=== PATIENT | female | born 1970 | race Caucasian/White ===

== ENCOUNTER 2017-10-09 08:32 | Day surgery (SDC) | payer OTHER ==
[2017-10-09] MEDS ORDERED: SCOPOLAMINE HYDROBROMIDE PATCH TD ONE (08:41)
[2017-10-09] MEDS ORDERED: Ringers Lactate 1,000 ML IV ONE ×5 (08:46→14:55)
[2017-10-09] MEDS ORDERED: CEFAZOLIN/SWI 1gm 1 GM/10 ML SYR ONE ×2 (08:46→09:07)
[2017-10-09 08:49] LABS: Specific Gravity 1.025 (1.005-1.030)
[2017-10-09 08:50] LABS: Absolute Monocytes 0.3 K/uL (0.1-1.3); Absolute Neutrophil 4.7 K/uL (1.8-8.0); Basophils % 0.6 % (0-1.3); Eosinophils % 8.1 % (0-4.4); Hematocrit 41.6 % (36.0-45.0); Lymphocytes % 26.3 % (15.3-44.8); MCH 28.8 pg (27.0-35.0); MCV 86.3 fL (80-100); MPV 8.2 fL (7.6-11.3); Monocytes % 4.2 % (3.3-12.3); RBC Red Blood Cell Count 4.82 M/uL (3.86-4.86)
[2017-10-09] MEDS ORDERED: PROPOFOL 200 MG/20 ML VIAL IV ONE (08:55)
[2017-10-09] MEDS ORDERED: MIDAZOLAM HCL 2 MG/2 ML INJ ONE (08:56)
[2017-10-09] MEDS ORDERED: LIDOCAINE 2% MPF 5 ML VIAL ONE (08:56)
[2017-10-09] MEDS ORDERED: FENTANYL CITR 100 MCG/2 ML ONE ×2 (08:57→11:47)
[2017-10-09] MEDS ORDERED: ROCURONIUM 50 MG/5 ML VIAL IV ONE (08:58)
[2017-10-09] MEDS ORDERED: ONDANSETRON 4 MG/2 ML VIAL ONE ×2 (08:58→16:17)
[2017-10-09] MEDS ORDERED: NS 0.9% VIAL 10 ML ONE ×3 (09:06→13:36)
[2017-10-09] MEDS ORDERED: GENTAMICIN 80 MG/100 ML BAG 80 MG/100 ML BAG IV ONE (09:07)
[2017-10-09] MEDS ORDERED: BACITRACIN 50000 UNIT VIAL ONE (09:07)
--- NOTE | 2017-10-09 09:14 | RAD REPORT ---
EXAM DESCRIPTION: Yeny Sher (2 Views)10/09/2017 8:29 am CLINICAL HISTORY: Preop for breast surgery COMPARISON: None FINDINGS: The lungs appear clear of acute infiltrate. The heart is normal size IMPRESSION: No acute abnormalities displayed
[2017-10-09] MEDS ORDERED: DEXAMETHASONE 10 MG/ML VIAL ONE (09:48)
[2017-10-09 10:00] LABS: Thyroid Stimulating Hormone 21.39 uIU/mL (0.34-5.60)
[2017-10-09] MEDS ORDERED: EPHEDRINE SULF 50 MG/ML SYR ONE (10:47)
[2017-10-09] MEDS ORDERED: Phenylephrine HCl 10 MG/ML 1 ML VIAL ONE (10:50)
[2017-10-09] MEDS ORDERED: GLYCOPYRROLATE 0.2 MG/ML SYR ONE (10:50)
[2017-10-09] MEDS ORDERED: MEPERIDINE HCL 25 MG/0.5 ML ONE (13:31)
[2017-10-09] MEDS ORDERED: Mastisol Adhesive Liq ONE (14:17)
[2017-10-09] MEDS ORDERED: KETOROLAC 30 MG/ML INJ ONE (14:49)
[2017-10-09] MEDS ORDERED: MEPERIDINE HCL 50 MG/ML AMP ONE (15:09)
--- NOTE | 2017-10-09 16:27 | EKG ---
Test Date: 2017-10-09 Test Time: 08:18:48 [employer] Economist: IRINA MEASUREMENT RESULTS: Intervals: Rate: 47 MD: 146 QRSD: 86 QT: 454 QTc: 401 [place]: P: 11 MD: 146 QRS: 67 T: 54 INTERPRETIVE STATEMENTS: Marked sinus bradycardia Abnormal ECG No previous ECG available for comparison Electronically Signed On 10-09-17 16:23:46 CDT by Facundo Goff
--- NOTE | 2017-10-10 02:08 | OP ---
Date of Procedure: 10/09/2017 Surgeon: Nando Stover MD Medical Pathology Teacher: James. Preoperative Diagnosis: Breast enlargement and descent. Preoperative Diagnosis: Breast enlargement and descent. Procedure Performed: Lift and reduction. Anesthesia: General. Description Of Procedure: After satisfactory induction of general anesthesia, the chest was prepped with DuraPrep and dry sterile drapes were applied in the usual manner. A 45 template was used to out line the right areola. Then, a transverse curvilinear inferior incision was made. The intervening s kin was de-epithelialized with an EpiCut or dermabrader, left side done simultaneously. After both s ides were done simultaneously a transverse incision was made with electrocautery. The flap was eleva velasquez 0.5 cm thick out toward the sternum, clavicle, and anterior axillary line on both sides. Dissect ion proceeded down then with a bladder blade and then the inferior incision was made. The de-epitheli alized flap was formed into a cone prior to rotation and excess lateral breast tissue was removed wit h a scalpel and electrocautery. The cone was formed with 2- 0 PDS sutures and the straps were elevat ed at 12 o'clock, 1:30 and 3 o'clock positions on the right side. Mirror image on the left. The str aps were then woven in and out the pectoralis major muscle, back to the base of the cone, back to the mselves and eventually tied to themselves with 2-0 PDS. This was done, from 12 o'clock, 1:30, at 3 o 'clock and the strap was sewn at 3 o'clock position with 2-0 Ethibond. Left side was done in a mirro r image manner. The wound was then stapled and the skin was shut. The patient was sat up, dog-ears were resected, marked out, and the patient placed supine. Dog-ears resected irrigated with an antibi otic solution. Electrocautery was used for hemostasis. A 10 RAJAT brought out right axilla, sewn in pl ge with 2-0 silk and wound closed in layers. 3-0 Vicryl subcu 3-0 PDS running subcuticular tied in the vertical meridian of the breast. Left side done in an identical manner. Patient was sat up and a new nipple-areolar complex was marked out. A 45 template was used to core out the tissue. Tissue was removed and then electrocautery used for hemostasis. Nipple was delivered, sewn with interrupte d 4-0 Monocryl and 4-0Monocry running subcuticular. Tincture of benzoin, Steri-Strips, 5 x 5s, fluff s, and Ge wrap. The patient tolerated the procedure well and returned to recovery room. The amount removed was 390 on the right and on the left. TED/RAZIA Voice ID: [id number] Report ID: [id number]
== END 2017-10-09 18:08 | disposition home or self-care (01) ==
LOC: OR 08:32
PROVIDERS: ATTEND Specialist
PROC: 0HSV0ZZ Reposition Bilateral Breast, Open Approach (ICD-10-PCS; 2017-10-09)
PROC: 0HBV0ZZ Excision of Bilateral Breast, Open Approach (ICD-10-PCS; principal; 2017-10-09 09:00)
DX: N62 Hypertrophy of breast (principal); N64.81 Ptosis of breast; J45.909 Unspecified asthma, uncomplicated; E07.9 Disorder of thyroid, unspecified
CPT/HCPCS: 36415; 71046; 81025; 84439; 84443; 84481; 85025; 88305; 93005; J0690; J1100; J1580; J2175; J2250; J2370; J2405; J3010